=== PATIENT | male | born 1950 | race Caucasian/White ===

== ENCOUNTER 2021-07-04 20:23 | Emergency (ER) | payer BC, MEDICARE ==
[~2021-07-04] VITALS: Ht 177.8 cm; Wt 117.3 kg
[2021-07-04] MEDS ORDERED: AMLO1TAB24 PO (20:41)
[2021-07-04] MEDS ORDERED: GLIM2TAB4 PO (20:41)
[2021-07-04] MEDS ORDERED: TERA2CAP3 PO (20:41)
[2021-07-04] MEDS ORDERED: TOUJ1.2I SC (20:41)
[2021-07-04] MEDS ORDERED: LYRI150C PO (20:41)
[2021-07-04] MEDS ORDERED: FENO54TA2 PO (20:41)
[2021-07-04] MEDS ORDERED: SITA50TAB PO (20:41)
[2021-07-04] MEDS ORDERED: MAGN200T PO (20:41)
[2021-07-04] MEDS ORDERED: KP F1200 PO (20:41)
[2021-07-04] MEDS ORDERED: LASI80TA3 PO (20:41)
[2021-07-04] MEDS ORDERED: ATOR1TAB19 PO (20:41)
[2021-07-04] MEDS ORDERED: INSUHUMDS SC (20:41)
[2021-07-04] MEDS ORDERED: ASPI81TA26 PO (20:41)
[2021-07-04] MEDS ORDERED: METO50TA7 PO (20:41)
[2021-07-04] MEDS ORDERED: VITMTA PO (20:41)
[2021-07-04] MEDS ORDERED: vitamin D PO (20:41)
[2021-07-04 22:38] LABS: BASO # 0.1 10^3/uL (0.0-0.2); BASO % 0.7 % (0.0-1.0); EOS # 0.3 10^3/uL (0.0-0.5); EOS % 4.3 % (0.0-3.0); HEMATOCRIT 43.3 % (42.0-52.0); HEMOGLOBIN 14.9 g/dl (13.5-17.5); LYMPH # 2.4 10^3/uL (1.5-5.0); LYMPH % 33.4 % (24.0-44.0); MEAN CORPUSCULAR HGB CONC 34.4 g/dl (32.0-36.5); MEAN CORPUSCULAR VOLUME 87.1 fl (80.0-96.0); MONO # 0.6 10^3/uL (0.0-0.8); MONO % 8.2 % (2.0-8.0); NEUTROPHILS # 3.8 10^3/uL (1.5-8.5); NEUTROPHILS % 53.1 % (36.0-66.0); PLATELET COUNT, AUTOMATED 210 10^3/uL (150-450); RED BLOOD COUNT 4.97 10^6/uL (4.30-6.10); WHITE BLOOD COUNT 7.2 10^3/uL (4.0-10.0)
[2021-07-04 22:50] LABS: INR 0.9; PROTHROMBIN TIME 12.6 SECONDS (12.7-14.5)
[2021-07-04] MEDS ORDERED: ISOVUE-370 76% 100ML VIAL As Ordered ONE (22:51)
[2021-07-04 23:01] LABS: CK-MB VALUE MASS 2.8 NG/ML (<3.6); MB/CK RELATIVE INDEX 0.68 (< OR =4)
[2021-07-04 23:02] LABS: ALBUMIN 3.9 GM/DL (3.2-5.2); ALT/SGPT 32 U/L (12-78); AMYLASE 65 U/L (25-115); BILIRUBIN,DIRECT < 0.1 MG/DL (0.0-0.2); BILIRUBIN,TOTAL 0.5 MG/DL (0.2-1.0); BLOOD UREA NITROGEN 38 MG/DL (7-18); CALCIUM LEVEL 10.4 MG/DL (8.8-10.2); CARBON DIOXIDE LEVEL 31 MEQ/L (21-32); CHLORIDE LEVEL 103 MEQ/L (98-107); CREATININE FOR GFR 2.09 MG/DL (0.70-1.30); GLOMERULAR FILTRATION RATE 33.3 (>42); GLUCOSE, FASTING 91 MG/DL (70-100); LIPASE 243 U/L (73-393); SODIUM LEVEL 139 MEQ/L (136-145); TOTAL PROTEIN 7.9 GM/DL (6.4-8.2)
[2021-07-04 23:48] LABS: RSV AMPLIFICATION NEGATIVE (NEGATIVE)
[2021-07-05] MEDS ORDERED: METR-265 PO (01:24)
[2021-07-05] MEDS ORDERED: ONDA4TAB6 PO (01:24)
[2021-07-05] MEDS ORDERED: CIPR-249 PO (01:24)
[2021-07-05 01:52] VITALS: BP 152/80
[2021-07-05] MEDS ORDERED: metroNIDAZOLE (FLAGYL) 500MG TABLET PO ONE (02:00)
[2021-07-05] MEDS ORDERED: CIPROFLOXACIN 500MG TABLET PO ONE (02:00)
== END 2021-07-05 01:54 | disposition home or self-care (01) ==
LOC: M ED 20:23
DX: K57.92 Diverticulitis of intestine, part unspecified, without perforation or abscess without bleeding (principal); U07.1 COVID-19; K40.31 Unilateral inguinal hernia, with obstruction, without gangrene, recurrent; E11.9 Type 2 diabetes mellitus without complications; E78.5 Hyperlipidemia, unspecified; M54.50 Low back pain, unspecified; I10 Essential (primary) hypertension; K21.9 Gastro-esophageal reflux disease without esophagitis
CPT/HCPCS: 36415; 74176; 76870; 80048; 80076; 81001; 82150; 82550; 82553; 83690; 84484; 85025; 85610; 87631; 93005; 99284; Q9967

== ENCOUNTER 2023-06-11 08:35 | Day surgery (SDC) | payer MEDICARE, MEDICAID ==
[~2023-06-11] VITALS: Ht 177.8 cm; Wt 118.8 kg
[~2023-06-11 08:35] MED LIST: AMLO1TAB24 PO; ASPI81TA26 PO; ATOR1TAB19 PO; ATOR1TAB21 PO; CIPR-249 PO; COQ1200C3 PO; DULA3PEN SC; FENO54TA2 PO; FURO80TA2 PO; GLIM2TAB4 PO; INSUHUMDS SC; KP F1200 PO; LASI80TA3 PO; LYRI150C PO; MAGN200T PO; MAGN400C PO; METO50TA7 PO; METR-265 PO; MIDAZOLAM INJ 2MG/2ML VIAL As Ordered ONE; ONDA4TAB6 PO; PRES1CHW PO; SITA50TAB PO; TERA10CA3 PO; TERA2CAP3 PO; TOUJ1.2I SC; VITMTA PO; fentaNYL 100 MCG/2 ML INJECTION As Ordered ONE; vitamin D PO
[2023-06-11] MEDS ORDERED: GLUCAGON INJ 1MG VIAL SC PRN (11:35)
[2023-06-11] MEDS ORDERED: DEXTROSE 50% 50ML SYRINGE IV PRN (11:35)
[2023-06-11] MEDS ORDERED: LR 1,000 ML IV SCH (11:35)
[2023-06-11] MEDS ORDERED: GLUCOSE 4GM CHEW TABLET PO PRN (11:35)
[2023-06-11] MEDS ORDERED: INSULIN LISPRO (NovoLOG) PER UNIT SC PRN (11:35)
[2023-06-11] MEDS: LIDOCAINE 3.5 % 1ML OPHTH TOPICAL GEL OU ONE (11:42)
[2023-06-11] MEDS: LIDOCAINE 2% W/EPINEPHRINE 20ML VIAL **PRES FREE As Ordered ONE (13:04)
[2023-06-11] MEDS: TOBRADEX OPHTH OINT 3.5 GM As Ordered ONE (13:04)
[2023-06-11 13:40] VITALS: BP 142/75; TEMP 97.5; O2SAT 98
== END 2023-06-11 13:49 | disposition home or self-care (01) ==
LOC: M SDC 08:35
PROVIDERS: ATTEND Ophthalmology
DX: H02.403 Unspecified ptosis of bilateral eyelids (principal); E11.22 Type 2 diabetes mellitus with diabetic chronic kidney disease; I12.9 Hypertensive chronic kidney disease with stage 1 through stage 4 chronic kidney disease, or unspecified chronic kidney disease; E78.00 Pure hypercholesterolemia, unspecified; N18.9 Chronic kidney disease, unspecified; G47.30 Sleep apnea, unspecified; Z79.899 Other long term (current) drug therapy; Z79.82 Long term (current) use of aspirin; Z79.4 Long term (current) use of insulin; Z90.49 Acquired absence of other specified parts of digestive tract
CPT/HCPCS: 67904; 88302; 88305; J2250; J3010

== ENCOUNTER 2025-02-09 07:16 | Day surgery (SDC) | payer MEDICARE, MEDICAID ==
[~2025-02-09] VITALS: Ht 180.3 cm; Wt 122.7 kg
[~2025-02-09 07:16] MED LIST changes: +D31000CA4 PO; +DULA4.5P PO; +LOSA25TA13 PO; +METO37.5 PO; -MIDAZOLAM INJ 2MG/2ML VIAL As Ordered ONE; +OMEGCAP4 PO; +ONDA-282 PO; -ONDA4TAB6 PO; +PHENYLEPHRINE 10% OPHTH SOL 5ML OS PRN; -fentaNYL 100 MCG/2 ML INJECTION As Ordered ONE
[2025-02-09] MEDS: OFLOXACIN 0.3 % (OCUFLOX) OPTH SOL 5ML OS ONE (10:02)
[2025-02-09] MEDS: CYCLOPENTOLATE 1% OPHTH SOLN 2 ML BTL OS SCH (10:02)
[2025-02-09] MEDS: LIDOCAINE 3.5% 1 ML OPHTH TOPICAL GEL OU ONE (10:02)
[2025-02-09] MEDS: TROPICAMIDE 1% OPHTH SOLN 15ML OS SCH (10:03)
[2025-02-09] MEDS: PHENYLEPHRINE 2.5% OPHTH SOL 2ML OS SCH (10:03)
[2025-02-09] MEDS ORDERED: MIDAZOLAM INJ 2 MG/2 ML VIAL As Ordered ONE (10:55)
[2025-02-09] MEDS: DUOVISC (0.50 ML VISCOAT/0.85 ML PROVISC) OPHTH KIT As Ordered ONE (11:24)
[2025-02-09] MEDS: CEFUROXIME 1 MG/0.1 ML INTRACAMERAL INJ As Ordered ONE (11:24)
[2025-02-09] MEDS: LIDOCAINE 1% SDV 5 ML VIAL As Ordered ONE (11:24)
[2025-02-09] MEDS: BSS IRRIG/VANCO(10MG)/TOBRA(5MG)/EPINEPH(1:1000-0.5CC)500ML BAG-ORONLY As Ordered ONE (11:24)
[2025-02-09] MEDS: CARBACHOL 0.01% OPHTH SOLN 1.5 ML VIAL As Ordered ONE (11:49)
[2025-02-09 11:58] VITALS: BP 113/53; TEMP 98; O2SAT 96
== END 2025-02-09 12:19 | disposition home or self-care (01) ==
LOC: M SDC 07:16
PROVIDERS: ATTEND Ophthalmology
DX: E11.36 Type 2 diabetes mellitus with diabetic cataract (principal); H25.12 Age-related nuclear cataract, left eye; H40.1122 Primary open-angle glaucoma, left eye, moderate stage; I12.9 Hypertensive chronic kidney disease with stage 1 through stage 4 chronic kidney disease, or unspecified chronic kidney disease; E78.00 Pure hypercholesterolemia, unspecified; N18.9 Chronic kidney disease, unspecified; G47.30 Sleep apnea, unspecified; Z79.899 Other long term (current) drug therapy; Z79.82 Long term (current) use of aspirin; Z79.4 Long term (current) use of insulin; Z79.85 Long-term (current) use of injectable non-insulin antidiabetic drugs
CPT/HCPCS: 66984; 92015; C1783; J0697; J2250; J3010; V2632

== ENCOUNTER 2025-02-16 07:25 | Day surgery (SDC) | payer MEDICARE, MEDICAID ==
[~2025-02-16] VITALS: Ht 180.3 cm; Wt 120.7 kg
[~2025-02-16 07:25] MED LIST changes: +PHENYLEPHRINE 10% OPHTH SOL 5ML OD PRN; -PHENYLEPHRINE 10% OPHTH SOL 5ML OS PRN
[2025-02-16] MEDS: LIDOCAINE 3.5% 1 ML OPHTH TOPICAL GEL OU ONE (07:56)
[2025-02-16] MEDS: OFLOXACIN 0.3 % (OCUFLOX) OPTH SOL 5ML OD ONE (07:56)
[2025-02-16] MEDS: CYCLOPENTOLATE 1% OPHTH SOLN 2 ML BTL OD SCH (07:57)
[2025-02-16] MEDS: PHENYLEPHRINE 2.5% OPHTH SOL 2ML OD SCH (07:57)
[2025-02-16] MEDS: TROPICAMIDE 1% OPHTH SOLN 15ML OD SCH (07:57)
[2025-02-16] MEDS: LIDOCAINE 1% SDV 5 ML VIAL As Ordered ONE (08:21)
[2025-02-16] MEDS: CEFUROXIME 1 MG/0.1 ML INTRACAMERAL INJ As Ordered ONE (08:22)
[2025-02-16] MEDS: DUOVISC (0.50 ML VISCOAT/0.85 ML PROVISC) OPHTH KIT As Ordered ONE (08:22)
[2025-02-16] MEDS: BSS IRRIG/VANCO(10MG)/TOBRA(5MG)/EPINEPH(1:1000-0.5CC)500ML BAG-ORONLY As Ordered ONE (08:22)
[2025-02-16 08:55] VITALS: BP 144/69; TEMP 97.9; O2SAT 95
== END 2025-02-16 08:56 | disposition home or self-care (01) ==
LOC: M SDC 07:25
PROVIDERS: ATTEND Ophthalmology
DX: H40.1122 Primary open-angle glaucoma, left eye, moderate stage (principal); E11.36 Type 2 diabetes mellitus with diabetic cataract; H25.11 Age-related nuclear cataract, right eye; I10 Essential (primary) hypertension; G47.30 Sleep apnea, unspecified; E78.00 Pure hypercholesterolemia, unspecified; K21.9 Gastro-esophageal reflux disease without esophagitis; Z79.899 Other long term (current) drug therapy; Z79.4 Long term (current) use of insulin; Z90.89 Acquired absence of other organs; Z98.42 Cataract extraction status, left eye
CPT/HCPCS: 66991; C1783; J0697; J3010; V2632